=== PATIENT | female | born 1955 ===

== ENCOUNTER 2016-11-03 09:33 | Outpatient (CLI) | payer OTHER ==
[2016-11-03 12:30] LABS: #Basophils 0.1 thou/uL (0.0-0.2); #Eosinphils 0.3 thou/uL (0.0-0.7); #Lymphocytes 2.9 thou/uL (1.20-3.40); #Monocytes 0.5 thou/uL (0.11-0.59); #Neutrophils 5.1 thou/uL (1.40-6.50); %Basophils 1.3 % (0.0-1.0); %Lymphocytes 32.7 % (21.0-51.0); %Monocytes 5.8 % (0.0-10.0); Hematocrit 44.8 % (36.0-47.0); Mean Platelet Volume 5.3 fL (7.4-10.4); Red Blood Cell (RBC) Count 4.99 mill/uL (4.20-5.40); White Blood Cell (WBC) Count 8.9 thou/uL (4.8-10.8)
[2016-11-03 12:59] LABS: ALT (SGPT) 36 U/L (0-55); AST (SGOT) 26 U/L (5-34); Alkaline Phosphatase 119 U/L (40-150); Anion Gap 16 mmol/L (10-20); BUN (Urea Nitrogen) 12 mg/dL (9.8-20.1); Bilirubin, Direct 0.2 mg/dL (0.1-0.3); Bilirubin, Total 0.5 mg/dL (0.2-1.2); Calc. Creatinine Clearance 0 mL/min (70-130); Calcium 9.3 mg/dL (7.8-10.44); Carbon Dioxide 23 mmol/L (23-31); Chloride 103 mmol/L (98-107); Estimated GFR-MDRD 70; LDL Cholesterol, Calculated 102 mg/dL; Protein, Total 7.2 g/dL (5.8-8.1)
[2016-11-03 13:02] LABS: Hemoglobin A1c 5.5 % (4.0-6.0)
== END 2016-11-03 09:34 | disposition home or self-care (01) ==
LOC: NAVSJIPCSP 09:33
PROVIDERS: ATTEND Family Medicine
DX: E03.9 Hypothyroidism, unspecified (principal); I10 Essential (primary) hypertension; R42 Dizziness and giddiness; Z79.899 Other long term (current) drug therapy
CPT/HCPCS: 36415; 80048; 80061; 80076; 83036; 84443; 85025